=== PATIENT | female | born 1980 | race African-American/Black ===

== ENCOUNTER → 2024-12-14 | Day surgery (SDC) | payer MEDICARE ==
[~2024-12-14] MED LIST: ACETAMINOPHEN 1000 MG/100 ML 0 ML IV ONE; FENOFIBRATE145 MG PO; FENTANYL CITRATE/PF 100MCG/2 ML INJ ONE; GLIPIZIDE ER5 MG PO; LEVEMIR100 UNIT/1 SC; LIDOCAINE HCL 2% LOCAL INJ 5 ML SDV VIAL INJ ONE; LIPITOR10 MG PO; LOSARTAN POTASS25 MG PO; MIDAZOLAM HCL 2 MG/2 ML VIAL ONE; PROPOFOL IV EMULSION 10 MG/ML 20 ML VIAL ONE; SEVOFLURANE INHAL SOLN 250 ML PEN BTL ONE
[2024-12-14] MEDS: INSULIN REGULAR, HUMAN 100 UNIT/1 ML ONE ×2 (09:29→10:46)
[2024-12-14] MEDS: LACTATED RINGER'S 1,000 ML ONE (09:31)
[2024-12-14 11:16] VITALS: TEMP 97
[2024-12-14 11:45] VITALS: BP 153/85; PULSE 95; RESP 18; O2SAT 99
== END | disposition home or self-care (01) ==
LOC: OR 08:26
PROVIDERS: ATTEND Physical Medicine & Rehabilitation Pain Medicine
DX: G90.512 Complex regional pain syndrome I of left upper limb (principal); M79.642 Pain in left hand; I10 Essential (primary) hypertension; E11.65 Type 2 diabetes mellitus with hyperglycemia; Z01.810 Encounter for preprocedural cardiovascular examination; Z79.1 Long term (current) use of non-steroidal anti-inflammatories (NSAID); Z79.4 Long term (current) use of insulin; Z79.84 Long term (current) use of oral hypoglycemic drugs; Z79.899 Other long term (current) drug therapy; Z87.01 Personal history of pneumonia (recurrent)
CPT/HCPCS: 36415; 64510; 81025; 82948; 93005; J2003; J2704; J7121; 77002; J2250

== ENCOUNTER → 2024-12-21 | Day surgery (SDC) | payer MEDICARE ==
[~2024-12-21] MED LIST changes: -ACETAMINOPHEN 1000 MG/100 ML 0 ML IV ONE; +IOPAMIDOL 200 MG/ML 20 ML VIAL IT ONE; -MIDAZOLAM HCL 2 MG/2 ML VIAL ONE; -SEVOFLURANE INHAL SOLN 250 ML PEN BTL ONE
[2024-12-21] MEDS: LACTATED RINGER'S 1,000 ML ONE (07:51)
[2024-12-21] MEDS: INSULIN REGULAR, HUMAN 100 UNIT/1 ML ONE (08:21)
[2024-12-21 11:36] VITALS: TEMP 98.1
[2024-12-21 12:05] VITALS: BP 153/86; PULSE 90; RESP 16; O2SAT 97
== END | disposition home or self-care (01) ==
LOC: OR 06:28
PROVIDERS: ATTEND Physical Medicine & Rehabilitation Pain Medicine
DX: G90.512 Complex regional pain syndrome I of left upper limb (principal); I10 Essential (primary) hypertension; E78.5 Hyperlipidemia, unspecified; E11.9 Type 2 diabetes mellitus without complications; E66.01 Morbid (severe) obesity due to excess calories; Z79.84 Long term (current) use of oral hypoglycemic drugs; Z79.4 Long term (current) use of insulin; Z79.899 Other long term (current) drug therapy; Z87.01 Personal history of pneumonia (recurrent)
CPT/HCPCS: 64510; 81025; 93005; J2003; J2704; J3010; J7121; Q9967; 77002

== ENCOUNTER → 2025-01-04 | Day surgery (SDC) | payer MEDICARE ==
[~2025-01-04] MED LIST changes: +INSULIN REGULAR, HUMAN 100 UNIT/1 ML ONE; -IOPAMIDOL 200 MG/ML 20 ML VIAL IT ONE; +LACTATED RINGER'S 1,000 ML ONE; +MIDAZOLAM HCL 2 MG/2 ML VIAL ONE; +ONDANSETRON HCL INJ 2MG/ML 2ML 2 MG/ML VIAL ONE; +ROCURONIUM BROMIDE 1 ML IV ONE
[2025-01-04 11:22] VITALS: TEMP 98.8
[2025-01-04 12:15] VITALS: BP 143/96; PULSE 91; RESP 16; O2SAT 97
== END | disposition home or self-care (01) ==
LOC: OR 10:17
PROVIDERS: ATTEND Physical Medicine & Rehabilitation Pain Medicine
DX: G90.512 Complex regional pain syndrome I of left upper limb (principal); E11.9 Type 2 diabetes mellitus without complications; I10 Essential (primary) hypertension; E78.5 Hyperlipidemia, unspecified; E66.01 Morbid (severe) obesity due to excess calories; Z79.1 Long term (current) use of non-steroidal anti-inflammatories (NSAID); Z79.84 Long term (current) use of oral hypoglycemic drugs; Z79.4 Long term (current) use of insulin; Z79.899 Other long term (current) drug therapy
CPT/HCPCS: 64510; 81025; J2003; J2250; J2405; J2704; J3010; J7121; 77002